=== PATIENT | female | born 1980 | race Hispanic/Latino ===

== ENCOUNTER 2017-05-26 19:29 | Emergency (ER) | payer OTHER ==
[2017-05-26] MEDS ORDERED: KETOROLAC TROMETHAMINE 60 MG/2 ML VIAL ONE (20:36)
[2017-05-26] MEDS ORDERED: ORPHENADRINE CITRATE 30 MG/ML ML ONE (20:36)
== END 2017-05-26 20:51 | disposition home or self-care (01) ==
LOC: EDH 19:29
DX: S43.492A Other sprain of left shoulder joint, initial encounter (principal); V49.49XA Driver injured in collision with other motor vehicles in traffic accident, initial encounter; Y93.89 Activity, other specified; Y92.89 Other specified places as the place of occurrence of the external cause; Y99.8 Other external cause status
CPT/HCPCS: 71045; 73030; 81025; 96372 ×2; 99285; J1885; J2360